=== PATIENT | male | born 1950 | race Caucasian/White ===

== ENCOUNTER → 2018-03-27 | Outpatient (CLI) | payer MEDICARE, BC ==
[~2018-03-27] MED LIST: GADOBUTROL 10 MMOL/10 ML PFS ONE
== END | disposition home or self-care (01) ==
LOC: CFH 07:35
PROVIDERS: ATTEND Registered Nurse
DX: R90.82 White matter disease, unspecified (principal); Z86.73 Personal history of transient ischemic attack (TIA), and cerebral infarction without residual deficits
CPT/HCPCS: 70553; 82565; A9585

== ENCOUNTER → 2018-06-04 | Outpatient (CLI) | payer MEDICARE, BC | END | disposition home or self-care (01) | LOC: CVU 08:30 | PROVIDERS: ATTEND Registered Nurse | DX: I65.23 Occlusion and stenosis of bilateral carotid arteries (principal); I35.1 Nonrheumatic aortic (valve) insufficiency; I35.0 Nonrheumatic aortic (valve) stenosis; I63.9 Cerebral infarction, unspecified; I10 Essential (primary) hypertension; E78.5 Hyperlipidemia, unspecified | CPT/HCPCS: 93306; 93880 ==

== ENCOUNTER → 2019-02-27 | Outpatient (CLI) | payer MEDICARE, BC | END | disposition home or self-care (01) | LOC: CARD 11:46 | PROVIDERS: ATTEND Registered Nurse | DX: I63.9 Cerebral infarction, unspecified (principal); G43.909 Migraine, unspecified, not intractable, without status migrainosus; R25.1 Tremor, unspecified | CPT/HCPCS: 95819 ==

== ENCOUNTER 2020-08-30 12:20 | Outpatient (CLI) | payer MEDICARE, BC | END 2020-08-30 23:59 | disposition home or self-care (01) | LOC: RAD 12:20 | PROVIDERS: ATTEND Registered Nurse | DX: R13.10 Dysphagia, unspecified (principal) | CPT/HCPCS: 74230 ==